=== PATIENT | female | born 1995 | race Caucasian/White ===

== ENCOUNTER 2019-09-19 16:52 | Outpatient (CLI) | payer OTHER ==
--- NOTE | 2019-09-20 01:35 | XRAY Report ---
Reason: RT ANKLE PAIN Procedure Date: 09/19/2019 Accession Number: [id number] / [id number] Procedure: XR - Ankle 3 View RT CPT Code: Final Report FULL RESULT: EXAM: RIGHT ANKLE RADIOGRAPHY EXAM DATE: 09/19/2019 05:04 PM. CLINICAL HISTORY: RT ANKLE PAIN. COMPARISON: None. TECHNIQUE: 3 views. FINDINGS: Bones: No acute fractures or suspicious bone lesions. Joints: No subluxations. Ankle mortise is preserved. Soft Tissues: Lateral soft tissue swelling. IMPRESSION: No acute fracture or subluxation. RADIA
== END 2019-09-19 16:53 | disposition home or self-care (01) ==
LOC: DI 16:52
PROVIDERS: ATTEND Physician Assistant
DX: M25.572 Pain in left ankle and joints of left foot (principal)

== ENCOUNTER 2020-06-26 17:54 | Outpatient (CLI) | payer OTHER ==
--- NOTE | 2020-06-26 19:05 | Ultrasound Report ---
PROCEDURE: OB First Trimester INDICATIONS: POSITIVE TEST OUTSIDE/PRIOR DATING DATA: Last menstrual period (LMP): 04/26/2020. LMP-based estimated date of delivery (SULLY): 01/31/2021. First dating scan (date and location): 06/26/2020. Estimated date of delivery (SULLY) from first dating scan: 02/02/2021. TECHNIQUE: Real-time scanning was performed of the fetus and maternal pelvic organs, with image documentation. COMPARISON: None FINDINGS: Embryo: Single intrauterine gestational sac is seen with fetus and yolk sac seen. heart rate i s 171 bpm. [place]-rump length measures 1.9 cm. Estimated gestational age based on current study is 8 w eeks, 3 days. No perigestational hemorrhage is noted. Measurement variability in dating: +/- 4 weeks by LMP, +/- 7 days by mean sac diameter (use before 6 weeks gestation if crown-rump length not able to be measured), +/- 5 days by crown-rump length (6-12 weeks gestation). Maternal organs: Ovaries are within normal limits. Limited images through the kidneys demonstrate n o hydronephrosis. IMPRESSION: 1. Single live intrauterine gestation with fetus and yolk sac seen. heart rate is 171 bpm. [place]anyell mated gestational age based on current study is 8 weeks, 3 days. 2. Normal appearing bilateral ovaries. No evidence of para gestational hemorrhage. Reviewed by: Yusuf Aldrich MD on 06/26/2020 7:03 PM PDT Approved by: Yusuf Aldrich MD on 06/26/2020 7:03 PM PDT Station ID: [id number]
== END 2020-06-26 17:55 | disposition home or self-care (01) ==
LOC: DI 17:54
PROVIDERS: ATTEND Advanced Practice Midwife
DX: Z32.01 Encounter for pregnancy test, result positive (principal)
CPT/HCPCS: 76801

== ENCOUNTER 2020-08-10 08:08 | Outpatient (CLI) | payer OTHER ==
[2020-08-10 09:02] LABS: BASOPHILS % (AUTO) 0.4 %; EOSINOPHILS % (AUTO) 0.7 %; LYMPHOCYTES # (AUTO) 1.3 10^3/uL (1.5-3.5); LYMPHOCYTES % (AUTO) 23.5 %; MEAN CORPUSCULAR HEMOGLOBIN 32.5 pg (27.0-31.0); MEAN CORPUSCULAR HGB CONC 34.4 g/dL (32.0-36.0); MEAN CORPUSCULAR VOLUME 94.6 fL (81.0-99.0); MEAN PLATELET VOLUME 11.4 fL (7.9-10.8); MONOCYTES # (AUTO) 0.3 10^3/uL (0.0-1.0); MONOCYTES % (AUTO) 5.6 %; NEUTROPHILS # (AUTO) 3.9 10^3/uL (1.5-6.6); NEUTROPHILS % (AUTO) 69.4 %; PLT - PLATELET COUNT 171 10^3/uL (130-450); RED BLOOD COUNT 3.69 10^6/uL (4.20-5.40); RED CELL DISTRIBUTION WIDTH 12.8 % (12.0-15.0); WHITE BLOOD COUNT 5.6 x10^3/uL (4.8-10.8)
[2020-08-10 09:08] LABS: BILIRUBIN,URINE NEGATIVE (NEGATIVE); GLUCOSE, URINE (UA) NEGATIVE (NEGATIVE); KETONES,URINE (UA) NEGATIVE (NEGATIVE); LEUKOCYTE ESTERASE, URINE NEGATIVE (NEGATIVE); NITRITE,URINE NEGATIVE (NEGATIVE); OCCULT BLOOD,URINE NEGATIVE (NEGATIVE); PROTEIN,URINE NEGATIVE (NEGATIVE); UROBILINOGEN,URINE 0.2 (NORMAL) E.U./dL (NORMAL)
[2020-08-10 09:09] LABS: CLARITY,URINE CLOUDY (CLEAR)
[2020-08-10 09:20] LABS: AMORPHOUS SEDIMENT,UR Marked /LPF; BACTERIA,URINE Many /HPF (None Seen); RBC,URINE None Seen /HPF (0-5); SQUAMOUS EPITHELIAL CELL,UR MANY Squamous (<= Few)
[2020-08-12 15:46] LABS: HIV AG/AB 4TH GEN NON-REACTIVE (NON-REACTIVE)
[2020-08-12 19:30] LABS: HEPATITIS B SURFACE ANTIGEN NON-REACTIVE (NON-REACTIVE)
[2020-08-12 19:46] LABS: HEPATITIS C ANTIBODY NON-REACTIVE (NON-REACTIVE)
== END 2020-08-10 08:09 | disposition home or self-care (01) ==
LOC: LAB 08:08
PROVIDERS: ATTEND Advanced Practice Midwife
DX: Z34.90 Encounter for supervision of normal pregnancy, unspecified, unspecified trimester (principal); Z36.89 Encounter for other specified antenatal screening; Z36.0 Encounter for antenatal screening for chromosomal anomalies
CPT/HCPCS: 36415; 81001; 81220; 81243; 81329; 81511; 81599; 85025; 86762; 86803; 86850; 86900; 86901; 87086; 87340; 87389

== ENCOUNTER 2020-08-21 07:00 | Outpatient (CLI) | payer OTHER ==
[2020-08-21 20:36] LABS: TRICHOMONAS VAGINALIS DNA NEGATIVE (NEGATIVE)
== END 2020-08-21 23:59 | disposition home or self-care (01) ==
LOC: LAB.R 07:00
PROVIDERS: ATTEND Nurse Practitioner Obstetrics & Gynecology
DX: Z11.3 Encounter for screening for infections with a predominantly sexual mode of transmission (principal)
CPT/HCPCS: 87491; 87591; 87661

== ENCOUNTER 2020-09-19 08:47 | Outpatient (CLI) | payer OTHER ==
--- NOTE | 2020-09-19 17:24 | Ultrasound Report ---
PROCEDURE: OB Detailed Eval INDICATIONS: SCREENING OUTSIDE/PRIOR DATING DATA: Last menstrual period (LMP): 04/26/2020. LMP-based estimated date of delivery (SULLY): 01/31/2021. First dating scan (date and location): 06/26/2020. Estimated date of delivery (SULLY) from first dating scan: 02/02/2021. TECHNIQUE: Real-time scanning was performed of the fetus, with image documentation and biometric measurements. Endovaginal scanning: Not needed COMPARISON: 06/26/2020 OB ultrasound FINDINGS: General: A single living intrauterine gestation is present. Presentation: Vertex Placenta: Placental position is posterior, without previa. Amniotic fluid index: 13.8 cm, 44th percentile for gestational age. heart rate: 145 beats per minute. Maternal cervical canal: 4.3 cm long; normal length is 2.5 cm or more. biometrics: Biparietal diameter: 4.9 cm, 20 weeks 5 days Head circumference: 18.3 cm, 20 weeks 5 days Abdominal circumference: 15.7 cm, 20 weeks 6 days Femur length: 3.3 cm, 20 weeks 2 days Estimated gestational age from initial scan: 20 weeks 4 days. Composite gestational age from present scan: 20 weeks 4 days Estimated weight and percentile: 366 g, 48th percentile Measurement variability in biometric dating: +/- 10 days from 12-20 weeks gestation, +/- 2 weeks from 20-30 weeks gestation, +/- 3 weeks at 30 weeks gestation or later. Anatomic survey: Neuro: Ventricles are normal at less than 10 mm. Cisterna magna is normal at 3-11 mm. Cerebellum i s normal in size and morphology. Nuchal skin fold: Normal at less than 6 mm between 14 and 20 weeks gestational age. Face: Nose and lips, facial profile are normal. Spine: No evidence for spina bifida. Heart: 4-chambered heart is present, with normal ventricular outflow tracts. Diaphragm: Diaphragm is intact. Stomach: Left-sided stomach is present. Kidneys: No hydronephrosis. Normal is less than 5 mm in 2nd trimester, less than 7 mm in 3rd trimester. Cord: 3 vessel cord has orthotopic insertion. Bladder: Normal in size. Extremities: All 4 extremities are visualized. IMPRESSION: Appropriate interval growth, normal survey of anatomy, the delivery date is projected to be maggie dunn on 02/02/2021. Reviewed by: Leno Sarmiento MD on 09/19/2020 5:22 PM PST Approved by: Leno Sarmiento MD on 09/19/2020 5:22 PM PST Station ID: [id number]
== END 2020-09-19 08:48 | disposition home or self-care (01) ==
LOC: DI 08:47
PROVIDERS: ATTEND Nurse Practitioner Obstetrics & Gynecology
DX: Z36.89 Encounter for other specified antenatal screening (principal)
CPT/HCPCS: 76811

== ENCOUNTER 2020-12-24 07:20 | Outpatient (CLI) | payer OTHER ==
[2020-12-24 08:35] LABS: MEAN CORPUSCULAR HEMOGLOBIN 31.4 pg (27.0-31.0); MEAN CORPUSCULAR HGB CONC 32.6 g/dL (32.0-36.0); MEAN CORPUSCULAR VOLUME 96.3 fL (81.0-99.0); MEAN PLATELET VOLUME 11.3 fL (7.9-10.8); RED BLOOD COUNT 3.82 10^6/uL (4.20-5.40); RED CELL DISTRIBUTION WIDTH 12.7 % (12.0-15.0); WHITE BLOOD COUNT 8.7 x10^3/uL (4.8-10.8)
== END 2020-12-24 07:21 | disposition home or self-care (01) ==
LOC: LAB 07:20
PROVIDERS: ATTEND Advanced Practice Midwife
DX: Z34.90 Encounter for supervision of normal pregnancy, unspecified, unspecified trimester (principal); Z36.89 Encounter for other specified antenatal screening
CPT/HCPCS: 36415; 82950; 85027

== ENCOUNTER 2021-01-07 08:00 | Outpatient (CLI) | payer OTHER | END 2021-01-07 23:59 | disposition home or self-care (01) | LOC: LAB 08:00 | PROVIDERS: ATTEND Nurse Practitioner Obstetrics & Gynecology | DX: Z36.85 Encounter for antenatal screening for Streptococcus B (principal) | CPT/HCPCS: 87797 ==

== ENCOUNTER 2021-01-29 16:12 | Outpatient (CLI) | payer OTHER ==
--- NOTE | 2021-01-30 09:37 | Ultrasound Report ---
PROCEDURE: OB F/U or Repeat INDICATIONS: UTERINE SIZE-DATE DISCREPANCY OUTSIDE/PRIOR DATING DATA: Last menstrual period (LMP): 05/06/2020 LMP-based estimated date of delivery (SULLY): 01/31/2021. First dating scan (date and location): 06/26/2020. Estimated date of delivery (SULLY) from first dating scan: 02/02/2021. However, provider states that SULLY is 01/31/2021. TECHNIQUE: Real-time scanning was performed of the fetus, with image documentation and biometric measurements. COMPARISON: 09/19/2020 FINDINGS: General: A single living intrauterine gestation is present. Presentation: Cephalic Placenta: Placental position is posterior, without previa. Amniotic fluid index: 13.4 cm, greater than 50% for gestational age. heart rate: 149 beats per minute. Maternal cervical canal: Not well seen secondary to late stage of biometrics: Biparietal diameter: 9.3 cm, 37 weeks 6 days Head circumference: 34.25 cm, 39 weeks 4 days Abdominal circumference: 35.2 cm, 39 weeks 1 day Femur length: 6.3 cm, 32 weeks 5 days Estimated gestational age from initial scan: not applicable. Composite gestational age from present scan: 37 weeks 2 days Estimated weight and percentile: 3254 g, 24.4 percentile Measurement variability in biometric dating: +/- 10 days from 12-20 weeks gestation, +/- 2 weeks from 20-30 weeks gestation, +/- 3 weeks at 30 weeks gestation or more. Other: Not applicable. IMPRESSION: 1. Living late third trimester intrauterine . No evidence of complications. 2. Today's ultrasound age is 37 weeks 2 days. Clinical age (slightly adjusted by referring provider) is 39 weeks 5 days. Reviewed by: Herman Alcocer MD on 01/30/2021 9:35 AM PDT Approved by: Herman Alcocer MD on 01/30/2021 9:35 AM PDT Station ID: [id number]
== END 2021-01-29 16:13 | disposition home or self-care (01) ==
LOC: DI 16:12
PROVIDERS: ATTEND Nurse Practitioner Obstetrics & Gynecology
DX: O26.843 Uterine size-date discrepancy, third trimester (principal); Z3A.37 37 weeks gestation of pregnancy

== ENCOUNTER 2021-02-02 23:59 | Inpatient (IN) | payer OTHER ==
[2021-02-03] MEDS ORDERED: LIDOCAINE-MPF 1% 30 ML VIAL ID PRN (00:36)
[2021-02-03] MEDS ORDERED: SODIUM CHLORIDE FLUSH 0.9% 10 ML SYRINGE IVP PRN (00:36)
[2021-02-03] MEDS ORDERED: OXYTOCIN 10 UNIT/ML VIAL IM PRN (00:36)
[2021-02-03] MEDS ORDERED: OXYTOCIN/SODIUM CHLORIDE 500 ML IV PRN (00:36)
[2021-02-03] MEDS ORDERED: TRANEXAMIC ACID IN NACL 1,000 MG/100 ML BAG IV PRN (00:36)
[2021-02-03] MEDS ORDERED: AMPICILLIN 2 GM in SODIUM CHLORIDE 0.9% MINIBAG 100 ML IV ONE (00:36)
[2021-02-03] MEDS ORDERED: miSOPROStoL 200 MCG TABLET BC PRN (00:36)
[2021-02-03] MEDS ORDERED: CARBOPROST TROMETHAMINE 250 MCG/ML AMP IM PRN (00:36)
[2021-02-03] MEDS ORDERED: METHYLERGONOVINE 0.2 MG/ML VIAL IM PRN (00:36)
[2021-02-03] MEDS ORDERED: SODIUM CHLORIDE FLUSH 0.9% 10 ML SYRINGE IVP SCH (01:00)
--- NOTE | 2021-02-03 01:05 | HISTORY & PHYSICAL EXAMINATION ---
Admit History - Visit Reason Visit Reason: Contractions - : 1 Parity: 0 Premature: 0 Ectopic: 0 : 0 Care: positive: [facility] Risk/History: positive: None Complications This : positive: None Smoking Status: Never smoker - Mother's Labs Mother's Blood Type: positive: O Mother's RH: positive: Positive GBS: positive: Group B Strep Positive Rubella Status: positive: Immune Meds/Allgy - Allergies Allergies/Adverse Reactions: Allergies Allergy/AdvReac Type Severity Reaction Status Date / Time No Known Drug Allergies Allergy Verified 02/03/21 00:53 Review of Systems - Constitutional Constitutional: denies: Fever, Chills, Malaise - Eyes Eyes: denies: Blurred vision, Spots in vision, Dipolpia - Cardiovascular Cariovascular: denies: Irregular heart rate, Palpitations, Chest pain, Edema - Respiratory Respiratory: denies: Cough, SOB at rest - Gastrointestinal Gastrointestinal: denies: Constipation, Diarrhea, Change in bowel habits - Integumentary Integumentary: denies: Rash, Pruritis - Neurological Neurological: denies: Headache Physical - Abdominal Exam Contraction Frequency (min/apart): 3-5 Contraction Intensity: positive: Moderate Uterine Resting Tone: positive: Soft - Monitoring Heart Rate Baseline: 130 Strip Review: positive: Category I - Presentation Presentation: positive: Vertex - Vaginal Exam Membranes: positive: Membranes intact Dilation (in cm): 5 Effacement (%): 90 Station: positive: 0 Cervical Position: positive: Midposition - Speculum Exam Speculum Exam Performed: positive: No Plan for Labor - Plan For Labor I expect patient to be DC'd or transferred within 96 hours.: Yes Plan for Labor: HPI: Kanika is a 25yo @ 40.3wks gestation by LMP c/w 8.5wk U/S who presented to [facility] with c/o contractions. She states her contractions have steadily increased in frequency and duration for the past 24 hours with a notable increased intensity at approximately 12:30 yesterday afternoon. She denies vaginal bleeding or leakage of fluid. She reports +FM. Upon arrival SVE 5/0 and vertex. Membranes intact. She has been a patient of [facility] for the duration of her which has remained uncomplicated. She is noted to be GBS positive and will receive intrapartum antibiotic prophylaxis per protocol. She is hoping to have an unmedicated delivery. She will be admitted to [facility] for expectant management. Dating criteria: LMP: 04/26/2020 Initial U/S @ 8.5wks c/w LMP dating Serial exams - agree OB Hx: G1: Current Medications: PNV Allergies: NKDA PMHx: anemia - not present Surgical Hx: [place] tooth extraction 2011 Social Hx: Never smoker. No ETOH or IVDA. Javier. Family Hx: Breast cancer - mom; ovarian cancer - MGM; Alcoholism - MGM, MGF, Uncle; Diabetes - aunt course: Initial US: at 8.5wks c/w LMP for SULLY of 01/31/2021: O pos/Rubella immune Gentic testing: Quad neg; SMA neg; Fragile X neg; CF neg FAS WNL. Posterior placenta, no previa. 3VC. CATHRYN WNL. Size c/w dating. Glucola- 99 TDAP - declines Influenza: 08/21/2020 GBS at 36.4 weeks - POS IPAP in labor HSV: denies self and partner Breast pump Rx : 12/16/2020 MOD: . Javier (both big babies) Boy! Undecided on name; Desires "wait and see" approach to pain management however hoping to avoid epidural pp contraception: [place] PAP: 08/2018-neg per pt; would like at 6wk PP Physical Exam: Normocephalic, atraumatic Heart RRR w/o M/G/R Lungs CTAB Abdomen gravid, soft, nontender FHR baseline 130, moderate variability, + accels, no decels Contractions palpate moderate every 3-5 minutes with soft resting tone SVE 5/90/0. Membranes intact Bilateral LE's trace edema Mood is good Assessment: 25yo @ 40.3wks gestation by LMP c/w 8.5 wk U/S Early labor GBS positive FHR Category I Plan: Admit to [facility] for expectant management. Initiate IPAP for GBS prophylaxis per protocol which patient declines initially secondary to "do not want baby to be exposed for a prolonged period of time". Discussed implication of inadequate treatment including GBS infected infant leading to serious complications which could be fatal. Intermittent monitoring. Encouraged ambulation and position changes. Jacuzzi PRN. Nitrous oxide PRN. Epidural per maternal request. Anticipate . Pt verbalized understanding and agrees to above plan. She denies further questions or concerns at this time.
[2021-02-03 01:07] LABS: BASOPHILS % (AUTO) 0.3 %; EOSINOPHILS % (AUTO) 0.1 %; HCT - HEMATOCRIT 36.3 % (37.0-47.0); HGB - HEMOGLOBIN 12.5 g/dL (12.0-16.0); LYMPHOCYTES # (AUTO) 1.5 10^3/uL (1.5-3.5); LYMPHOCYTES % (AUTO) 10.8 %; MEAN CORPUSCULAR HEMOGLOBIN 32.1 pg (27.0-31.0); MEAN CORPUSCULAR HGB CONC 34.4 g/dL (32.0-36.0); MEAN CORPUSCULAR VOLUME 93.3 fL (81.0-99.0); MEAN PLATELET VOLUME 11.5 fL (7.9-10.8); MONOCYTES # (AUTO) 0.7 10^3/uL (0.0-1.0); MONOCYTES % (AUTO) 4.7 %; NEUTROPHILS # (AUTO) 11.6 10^3/uL (1.5-6.6); NEUTROPHILS % (AUTO) 83.2 %; PLT - PLATELET COUNT 141 10^3/uL (130-450); RED BLOOD COUNT 3.89 10^6/uL (4.20-5.40); RED CELL DISTRIBUTION WIDTH 12.5 % (12.0-15.0); WHITE BLOOD COUNT 13.9 x10^3/uL (4.8-10.8)
[2021-02-03] MEDS: LACTATED RINGERS 1,000 ML IV SCH ×2 (02:19→09:15)
--- NOTE | 2021-02-03 05:37 | PROVIDER PROGRESS NOTE ---
Labor Progress Note - Uterine Monitoring Uterine Monitoring Mode: positive: External toco Contraction Frequency (min/apart): 3-6 Contraction Intensity: positive: Strong Uterine Resting Tone: positive: Soft - Monitoring Monitor Mode: positive: External ultrasound Heart Rate Baseline: 140 Heart Rate Variability: positive: Moderate (6-25 bmp) Accelerations: positive: Present, 15x15 Decelerations: positive: None Strip Review: positive: Category I - Vaginal Exam Dilation (in cm): 8 Effacement (%): 90 Station: 0 - Labor Progress Note Labor Progress Note/Additional Text: S: Breathing through contractions. She is coping well and her partner is supportive at the bedside initiating hip squeezes per pt direction. She reports intermittent pressure with some contractions. Feeling tired after being awake all night but continues to cope well. Feels her water may have broken in the tub approximately 2 hours ago. Continues to leak small amount of clear fluid. O: FHR baseline 140, moderate variability, + accels, no decels Contractions palpate strong in somewhat irregular pattern every 3-6 minutes with soft resting tone SVE 8/90/0 SROM x 2 hours - clear fluid A: 25yo @ 40.3wks gestation by LMP c/w 8.5wk U/S Active labor GBS positive - s/p 2g Ampicillin x 1 FHR Category I P: Continue expectant management Encouraged position changes Nitrous oxide PRN Anticipate .
[2021-02-03] MEDS: AMPICILLIN 1 GM in SODIUM CHLORIDE 0.9% MINIBAG 100 ML IV SCH ×3 (06:02→14:02)
[2021-02-03] MEDS ORDERED: ROPIVACAINE 0.2% 200 MG/100 ML BAG EP ONE (08:42)
[2021-02-03] MEDS ORDERED: fentaNYL 100 MCG/2 ML VIAL ONE (08:46)
[2021-02-03] MEDS ORDERED: diphenhydrAMINE INJ 50 MG/ML VIAL IVP ONE (08:51)
[2021-02-03] MEDS ORDERED: ONDANSETRON 4 MG/2 ML VIAL IVP PRN (09:03)
[2021-02-03] MEDS ORDERED: ePHEDrine 50 MG/ML VIAL IVP PRN (09:03)
[2021-02-03] MEDS ORDERED: NALOXONE 0.4 MG/ML VIAL IVP PRN (09:03)
[2021-02-03] MEDS ORDERED: NALBUPHINE 10 MG/ML AMP IVP PRN (09:03)
[2021-02-03] MEDS ORDERED: ROPIVACAINE 0.2% 200 MG/100 ML BAG EP PRN (09:03)
--- NOTE | 2021-02-03 09:03 | ANESTHESIA ---
Pre-Anesthesia VS, & Labs - Diagnosis active labor - Procedure vaginal delivery Vital Signs: Temp Pulse Resp BP Pulse Ox 36.9 C 102 H 20 108/75 98 02/03/21 07:38 02/03/21 01:30 02/03/21 01:30 02/03/21 01:30 02/03/21 00:38 Height: 5 ft 9 in Weight (kg): 74.389 kg Body Mass Index: 24.2 BMI Classification: Healthy weight - NPO Other (clear liquids) - Is Patient ?: Yes - Lab Results Current Lab Results: Laboratory Tests 02/03/21 00:51: Blood Type O POSITIVE, Antibody Screen NEGATIVE 02/03/21 00:51: WBC 13.9 H, RBC 3.89 L, Hgb 12.5, Hct 36.3 L, MCV 93.3, MCH 32.1 H, MCHC 34.4, RDW 12.5, Plt Count 141, MPV 11.5 H, Neut # (Auto) 11.6 H, Lymph # (Auto) 1.5, Holmes # (Auto) 0.7, Eos # (Auto) 0.0, Baso # (Auto) 0.0, Absolute Nucleated RBC 0.00, Nucleated RBC % 0.0 Fish Bones: 02/03/21 00:51 Home Medications and Allergies Active Medications Carboprost Tromethamine (Carboprost Tromethamine 250 Mcg/Ml Amp) 250 mcg IM Q15M PRN PRN Reason: Step 4: Hemorrhage protocol Stop: 02/08/21 00:37 Oxytocin/Sodium Chloride (Pitocin/Sodium Chloride) 500 mls @ 999 mls/hr IV PRN PRN; Protocol PRN Reason: POST- HEMORR PREVENTION Stop: 02/08/21 00:37 Tranexamic Acid (Tranexamic 1,000 Mg/100ml-Nacl) 1,000 mg in 100 mls @ 600 mls/hr IV .ONCE PRN PRN Reason: EBL >1200mL and within 3hr Stop: 02/08/21 00:37 Ampicillin Sodium 1 gm/ Sodium (Chloride) 100 mls @ 200 mls/hr IV Q4H ELAINA Last Admin: 02/03/21 06:02 Dose: 200 mls/hr Documented by: Lactated Ringer's (Lr) 1,000 mls @ 150 mls/hr IV .[id number] [facility] Last Admin: 02/03/21 02:19 Dose: 150 mls/hr Documented by: Lidocaine HCl (Lidocaine-Mpf 1% 30 Ml Vial) 30 ml ID .ONCE PRN PRN Reason: PERINEAL REPAIR Stop: 02/08/21 00:37 Methylergonovine Maleate (Methylergonovine 0.2 Mg/Ml Vial) 0.2 mg IM .ONCE PRN PRN Reason: Step 2: Hemorrhage protocol Stop: 02/08/21 00:37 Misoprostol (Misoprostol 200 Mcg Tablet) 800 mcg BC .ONCE PRN PRN Reason: Step 3: Hemorrhage protocol Stop: 02/08/21 00:37 Oxytocin (Oxytocin 10 Unit/Ml Vial) 10 unit IM .ONCE PRN PRN Reason: Step one: If no IV access Stop: 02/08/21 00:37 Sodium Chloride (Sodium Chloride Flush 0.9% 10 Ml Syringe) 10 ml IVP PRN PRN PRN Reason: NEEDED PER PROVIDER ORDERS Sodium Chloride (Sodium Chloride Flush 0.9% 10 Ml Syringe) 10 ml IVP 0100,0900,1700 [facility] PNVs Allergies/Adverse Reactions: Allergies Allergy/AdvReac Type Severity Reaction Status Date / Time No Known Drug Allergies Allergy Verified 02/03/21 00:53 Anes History & Medical History - Anesthetic History Family history of Anesthesia Complications: Denies Family history of Malignant Hyperthermia: Denies - Medical History Cardiovascular: reports: None Pulmonary: reports: None Gastrointestinal: reports: None Urinary: reports: None Neuro: reports: None Musculoskeletal: reports: None Endocrine/Autoimmune: reports: None Blood Disorders: reports: None Skin: reports: None Smoking Status: Never smoker Psychosocial: reports: No issues indicated History of Cancer?: No - Obstetrical History : 1 Parity: 0 Events: positive: None Complications: positive: None Exam General: Alert, Oriented x3, Cooperative, No acute distress Dental: WNL Plan Anesthesia Type: Epidural (CSE) Consent for Procedure(s) Verified and Reviewed: Yes Code Status: Attempt Resuscitation ASA classification: 2-Mild systemic disease Is this case an emergency?: No
--- NOTE | 2021-02-03 09:20 | PROVIDER PROGRESS NOTE ---
Labor Progress Note - Uterine Monitoring Uterine Monitoring Mode: positive: External toco Contraction Frequency (min/apart): 2-4 Contraction Intensity: positive: Moderate Uterine Resting Tone: positive: Soft - Monitoring Monitor Mode: positive: External ultrasound Heart Rate Baseline: 125 Heart Rate Variability: positive: Moderate (6-25 bmp) Accelerations: positive: Present, 15x15 Decelerations: positive: Variable, Intermittent (<50% x20 min) Strip Review: positive: Category I (Overall Cat I, with an occassional variable during the setup of the epidural), Category II - Vaginal Exam Dilation (in cm): 6 Effacement (%): 80 Station: -1 Cervical Position: Anterior - Labor Progress Note Labor Progress Note/Additional Text: S: Nan was coping well with NOx gas, then began to feel overwhelmed and requested an epidural after SVE revealing more dilatation required before pushing. Epidural placed and Nan is now sleeping. Juan Alberto, her , is very supportive at bedside. O: SVE previously reported as 9/90% SVE now 6/80(edematous)/-1 GBS positive- amp given x2; next dose 1000 A: 25yo at 40.3wks in active labor Edematous cervix epidural effective FHT reassuring P: IV benadryl given at 0900 Epidural for pain management Continuous monitoring Anticipate
[2021-02-03] MEDS ORDERED: WITCH HAZEL/GLYCERIN 1 PAD TOP PRN (16:06)
[2021-02-03] MEDS ORDERED: HYDROCORTISONE 1% CREAM 28 GM TUBE PR PRN (16:06)
--- NOTE | 2021-02-03 16:17 | DELIVERY NOTE ---
Delivery Note - Labor Labor: positive: Spontaneous - Delivery Method Delivery Method: positive: Spontaneous vaginal delivery - Presentation Presentation: positive: Vertex, ANGIE - left occiput anterior - Nuchal Cord Nuchal Cord: positive: Present (loose x1; reduced) - Anesthetic Anesthetic Type: - Amniotic Fluid Description Amniotic Fluid Description: positive: Clear - Laceration Laceration: positive: 1st degree, Labial, Perineal - Suture Suture Type: positive: Vicryl Suture Size: positive: 3-0, 4-0 - Delivery Outcome Delivery Outcome: positive: Livebirth - [place] Providence: positive: Placed in direct skin contact with mother, Stimulated, [place] used sex: positive: Male : 9 : 9 - Cord Cord: positive: 3 vessels - Placenta Placenta: positive: Intact, Spontaneous - Estimated Blood Loss Estimated Blood Loss (in cc): 150 - Post Delivery Events Post Delivery Events: positive: No post delivery events - Delivery Comments (Free Text/Narrative) Delivery Comments (Free Text/Narrative): Note: Labor: This 25 year old, , @40.3wks gestation by 8.5week Ultrasound, confirmed by LMP, presented around 0100 in early active labor. Cervix was 5/90/0 and vertex by digital exam. FHR pattern demonstrated 130 baseline in a Category I pattern. SROM occurred at approx. 0330 in the whirlpool tub and amount and color of fluid were noted to be moderate and clear. Some cervical dilatation was slow to progress, but otherwise normal labor course. Epidural placed upon maternal request. She progressed to complete at 1318 and began pushing at 1325. : Normal of a 3665gm male on 02/03/2021 0523. Nuchal loose x1 and easily reduced. The was placed on maternal abdomen, stimulated, dried and placed skin to skin. Apgars 9 at one minute and 9 at five minutes. The umbilical cord was allowed to stop pulsating at which time it was doubly clamped and cut by CNM per maternal request. Pitocin administered via IV for hemostasis. Fundal massage and gentle cord traction applied for active third stage management. Cord blood was obtained. Placenta delivered spontaneously and intact at 1530. Three vessel cord. EBL 150mL. Fourth Stage: Uterine fundus firm and without excessive bleeding. The perineum, vagina, and cervix were inspected. The perineum sustained a superficial laceration that was repaired with a 4-0 vicryl, and bilateral labia minora sustained lacerations which were repaired with 3-0 vicryl. All repairs were performed in standard fashion under sterile conditions. Vaginal examination following repair was done. Tissues well approximated. initiated. Family bonding well. Both mother and baby are in stable condition.
[2021-02-03] MEDS: IBUPROFEN 600 MG TABLET PO SCH ×2 (17:11→22:55)
[2021-02-03] MEDS: DOCUSATE SODIUM 100 MG CAPSULE PO PRN (17:11)
[2021-02-03] MEDS: ACETAMINOPHEN 500 MG TABLET PO SCH (17:12)
[2021-02-04] MEDS: ACETAMINOPHEN 500 MG TABLET PO SCH ×2 (02:15→03:55)
[2021-02-04] MEDS: IBUPROFEN 600 MG TABLET PO SCH ×2 (06:12→10:35)
--- NOTE | 2021-02-04 09:08 | PROVIDER PROGRESS NOTE ---
Subjective - Prog Note Date Prog Note Date: 02/04/21 Prog Note Time: 09:02 - Subjective Pt reports feeling: Improved Subjective: S: Nan is sitting up in bed, baby. FOB is resting on the couch. She reports as going very well. She says her bleeding is like a heavy period, but is not soaking a pad every hour. Cramping is minimal. She desires to go home today, if possible, due to having family visiting to support her at home. O: Lochia rubra Fundus firm RPR w/reflex drawn and sent out today A: 25yo s/p on pp day 1 Normal recovery P: Continue routine care Evaluate for discharge home today or tomorrow, per peds Objective - Vital Signs/Intake & Output Vital Signs: Vital Signs x48h Temp Pulse Resp BP Pulse Ox 02/04/21 08:12 36.6 C 78 16 115/69 100 02/04/21 04:00 36.3 C L 99 22 108/71 96 Intake & Output: Intake & Output 02/01/21 02/02/21 02/03/21 02/04/21 23:59 23:59 23:59 23:59 Intake Total 2800 Output Total 1300 Balance 1500 - Lab Results Fish Bones: 02/03/21 00:51 Other Labs: Lab Results x24hrs 02/03/21 Range/Units 03:05 Coronavirus (PCR) NEGATIVE
[2021-02-04] MEDS: DOCUSATE SODIUM 100 MG CAPSULE PO PRN (10:35)
[2021-02-04 15:52] VITALS: BP 123/76
--- NOTE | 2021-02-04 16:38 | DISCHARGE SUMMARY ---
Discharge Summary Admit Date: 02/03/21 Discharge Date: 02/04/21 Condition at Discharge: Good - HPI History of Present Illness: Admit Date 02/03/2021 Discharge Date 02/04/2021 Diagnosis on Admission: 1. A 25yo at 40.3 week intrauterine 2. Early Active Labor 3. GBS positive Diagnosis on Discharge 1. A 25yo s/p spontaneous vaginal delivery on 02/03/2021 2. Normal recovery 3. Adequate GBS coverage Brief History: She is a patient at [facility] who presented on 02/03/2021 with complaints of contractions. The patient was found to contract every 3 to 5 minutes and her cervix was 5cm dilated, 90%effaced, and 0 station. She as augmented with pitocin and spontaneously delivered a viable male named Analy sarkar. Apgars were 9 and 9 - and 1 and 5 minutes respectively. EBL 150 mL. The patient has a superficial 1st degree laceration that was repaired with 4-0 vicryl, and bilateral labial lacerations that were repaired with 3-0 vicryl, all lacerations were repaired in usual fashion under sterile conditions. She has been doing well in her course. She is ambulating and tolerating a regular diet. She is urinating without difficulty and her lochia is normal. Her pain is well controlled with oral medications. She will be discharged home today on day #1 without need for prescriptions. She intends to follow up with Midwifery at [facility] in 1, and 6 weeks for routine visit. She has been given precautions to call if she has any worsening fevers, chills, abdominal pain, increased bleeding or foul smelling vaginal lochia. - ALLERGIES Allergies/Adverse Reactions: Allergies Allergy/AdvReac Type Severity Reaction Status Date / Time No Known Drug Allergies Allergy Verified 02/03/21 00:53 - LABS Result Diagrams: 02/03/21 00:51
--- NOTE | 2021-02-04 16:45 | Discharge Plan ---
Discharge Plan Problem Reviewed?: Yes Disposition: Home, Self Care Condition: Good Diet: Regular Additional Instructions or Follow Up instructions: Follow up with midwifery in one and six weeks No Smoking: If you smoke, Please STOP! Call for help. Follow-up with: Mary Long ARNP [Provider Admit Priv/Credential] -
--- NOTE | 2021-02-04 19:22 | Labor Flowsheet ---
Labor Flowsheet Datetime Report Generated by CPN: 02/04/2021 19:22 Datetime: 02/04/2021 15:48 VITAL SIGNS NBP Sys/Marlin/Mean (mmHg): 123 : 76 : 85 Pulse: 94 LaborFlag: Labor Datetime: 02/04/2021 03:59 SpO2 (%): 96 Datetime: 02/03/2021 14:24 UTERINE ACTIVITY Monitor Mode: External Frequency (min): 3 Quality: Strong Duration (sec): 90-120 Pattern: Normal: <= 5 Contractions in 10 Minutes Resting Tone (Palpate): Relaxed Contraction Comments: pushing well ASSESSMENT A Monitor Mode: External US FHR Baseline Rate : 140 Variability: Moderate 6-25 bpm Accelerations: 15X15 Decelerations: Variable Category: Category II Datetime: 02/03/2021 13:25 STAGE 2 Pushing: Coached on Pushing; No Urge to Push Pushing Position: Pushing Lithotomy Pushing Progress: Descent with Pushing Datetime: 02/03/2021 13:18 VAGINAL EXAM Dilatation (cm): 10.0 Effacement (%): 100 Exam by: Jacquelin Long CNJeff Vaginal Bleeding: Normal Show Cervix, Consistency: Soft Cervix, Position: Anterior Datetime: 02/03/2021 13:07 Respirations: 16 Datetime: 02/03/2021 12:56 PATIENT CARE Patient Position/Activity: Left Tilt; Semi-Fowlers Datetime: 02/03/2021 12:55 Temperature (C): 37.0 Datetime: 02/03/2021 12:14 Comments: deceleration to 90's when pt repositioned to throne. Datetime: 02/03/2021 12:01 Patient Care Comments: throne Datetime: 02/03/2021 10:58 Station: 0 Datetime: 02/03/2021 10:17 I/O Interventions: Jewell Cath Inserted Datetime: 02/03/2021 09:24 Temperature Route: Oral PAIN Pain Scale: 1 Pain Presence: Intermittent Pain Type: Dull Pain Location: Abdomen Pain Relief Measures: Epidural Given Pain Coping: Sleeping Anesthesia Level Check: T10- Umbilicus Datetime: 02/03/2021 09:00 Actions for Decelerations: IV Bolus Datetime: 02/03/2021 08:42 ANESTHESIA Epidural Procedure: Test Dose Datetime: 02/03/2021 08:23 Anesthesia Comments: A. Mary contacted via phone Datetime: 02/03/2021 08:18 Pain Assessment Comments: requesting epidural Datetime: 02/03/2021 08:00 COMMUNICATION Communication: Provider at Bedside Communication Comments: H. Ethan CNM assuming care Datetime: 02/03/2021 07:16 Stage of : Labor Datetime: 02/03/2021 06:56 Membranes Ruptured Date/Time: 02/03/2021 06:56 Membranes Rupture Method: Artificial Amniotic Fluid Color: Clear Datetime: 02/03/2021 04:28 Membrane Status: Intact
== END 2021-02-04 18:44 | disposition home or self-care (01) | DRG 807 ==
LOC: WFO 23:59 → FBP 02-03 00:04 → WFO 02-03 00:35 → FBP 02-03 00:36
PROVIDERS: ADMIT Nurse Practitioner Obstetrics & Gynecology; ATTEND Nurse Practitioner Obstetrics & Gynecology
PROC: 0HQ9XZZ Repair Perineum Skin, External Approach (ICD-10-PCS; principal; 2021-02-03)
PROC: 10E0XZZ Delivery of Products of Conception, External Approach (ICD-10-PCS; 2021-02-03)
DX: O70.0 First degree perineal laceration during delivery (principal); Z37.0 Single live birth; O69.81X0 Labor and delivery complicated by cord around neck, without compression, not applicable or unspecified; O99.824 Streptococcus B carrier state complicating childbirth; Z3A.40 40 weeks gestation of pregnancy
CPT/HCPCS: 36415; 85025; 86592; 86850; 86900; 86901; 87635; 99212; A9270; J1200; J7120

== ENCOUNTER 2022-04-03 15:49 | Outpatient (CLI) | payer OTHER ==
--- NOTE | 2022-04-03 18:43 | Ultrasound Report ---
PROCEDURE: OB First Trimester INDICATIONS: + PREG TEST OUTSIDE/PRIOR DATING DATA: Last menstrual period (LMP): 01/16/2022. LMP-based estimated date of delivery (SULLY): 10/23/2022. First dating scan (date and location): 04/03/2022. Estimated date of delivery (SULLY) from first dating scan: 10/29/2022. TECHNIQUE: Real-time scanning was performed of the fetus and maternal pelvic organs, with image documentation. COMPARISON: 01/29/2022 FINDINGS: Embryo: A single living intrauterine gestation is present with a heart rate of 169 bpm. Mean g estational sac diameter is 43 mm corresponding to a 9 week 6 day gestation. [place]-rump length is 33 m m corresponding to a 10 week 1 day gestation. There is a small subchorionic hemorrhage measuring 33 m m x 20 mm x 4 mm. Measurement variability in dating: +/- 4 weeks by LMP, +/- 7 days by mean sac diameter (use before 6 weeks gestation if crown-rump length not able to be measured), +/- 5 days by crown-rump length (6-12 weeks gestation). Maternal organs: Ovaries demonstrate a right-sided corpus luteal cyst. IMPRESSION: Early single living intrauterine gestation. Reviewed by: Laura Schneider MD on 04/03/2022 6:42 PM PDT Approved by: Laura Schneider MD on 04/03/2022 6:42 PM PDT Station ID: [id number]
== END 2022-04-03 15:50 | disposition home or self-care (01) ==
LOC: DI 15:49
PROVIDERS: ATTEND Obstetrics & Gynecology
DX: Z32.01 Encounter for pregnancy test, result positive (principal); Z36.89 Encounter for other specified antenatal screening
CPT/HCPCS: 36415; 81001; 85025; 86592; 86762; 86787; 86803; 86850; 86900; 86901; 87086; 87340; 87389

== ENCOUNTER 2022-04-03 15:53 | Outpatient (CLI) | payer OTHER ==
[2022-04-03 16:20] LABS: BASOPHILS % (AUTO) 0.5 %; EOSINOPHILS # (AUTO) 0.1 10^3/uL (0.0-0.7); EOSINOPHILS % (AUTO) 1.1 %; HCT - HEMATOCRIT 36.7 % (37.0-47.0); HGB - HEMOGLOBIN 12.4 g/dL (12.0-16.0); MEAN CORPUSCULAR HEMOGLOBIN 31.6 pg (27.0-31.0); MEAN CORPUSCULAR HGB CONC 33.8 g/dL (32.0-36.0); MEAN CORPUSCULAR VOLUME 93.4 fL (81.0-99.0); MEAN PLATELET VOLUME 11.5 fL (7.9-10.8); MONOCYTES # (AUTO) 0.4 10^3/uL (0.0-1.0); MONOCYTES % (AUTO) 5.4 %; NEUTROPHILS # (AUTO) 5.5 10^3/uL (1.5-6.6); NEUTROPHILS % (AUTO) 67.6 %; PLT - PLATELET COUNT 227 10^3/uL (130-450); RED BLOOD COUNT 3.93 10^6/uL (4.20-5.40); RED CELL DISTRIBUTION WIDTH 12.8 % (12.0-15.0); WHITE BLOOD COUNT 8.1 x10^3/uL (4.8-10.8)
[2022-04-03 16:56] LABS: BILIRUBIN,URINE NEGATIVE (NEGATIVE); GLUCOSE, URINE (UA) NEGATIVE (NEGATIVE); KETONES,URINE (UA) NEGATIVE (NEGATIVE); LEUKOCYTE ESTERASE, URINE NEGATIVE (NEGATIVE); NITRITE,URINE NEGATIVE (NEGATIVE); OCCULT BLOOD,URINE NEGATIVE (NEGATIVE); PROTEIN,URINE NEGATIVE (NEGATIVE); UROBILINOGEN,URINE 0.2 (NORMAL) E.U./dL (NORMAL)
[2022-04-03 17:04] LABS: AMORPHOUS SEDIMENT,UR Few /LPF; BACTERIA,URINE Rare /HPF (None Seen); CLARITY,URINE HAZY (CLEAR); RBC,URINE 0-5 /HPF (0-5); SQUAMOUS EPITHELIAL CELL,UR MANY Squamous (<= Few); WBC,URINE 0-3 /HPF (0-5)
[2022-04-04 05:12] LABS: HBsAG SCREEN Negative (Negative); HCV AB 0.4 s/co ratio (0.0-0.9); HIV SCREEN 4TH GENERATION Non Reactive (Non Reactive); RPR Non Reactive (Non Reactive)
[2022-04-04 08:09] LABS: VARICELLA-ZOSTER AB IGG <135 index (Immune >165)
== END 2022-04-03 15:54 | disposition home or self-care (01) ==
LOC: LAB 15:53
PROVIDERS: ATTEND Obstetrics & Gynecology
DX: Z36.89 Encounter for other specified antenatal screening (principal)
CPT/HCPCS: 36415; 81001; 85025; 86592; 86762; 86787; 86803; 86850; 86900; 86901; 87086; 87340; 87389

== ENCOUNTER 2022-04-17 08:00 | Outpatient (CLI) | payer OTHER ==
[2022-04-17 23:08] LABS: CHLAMYDIA TRACHOMATIS DNA NEGATIVE (NEGATIVE); NEISSERIA GONORRHOEAE DNA NEGATIVE (NEGATIVE); TRICHOMONAS VAGINALIS DNA NEGATIVE (NEGATIVE)
== END 2022-04-17 23:59 | disposition home or self-care (01) ==
LOC: LAB 08:00
PROVIDERS: ATTEND Obstetrics & Gynecology
DX: Z34.00 Encounter for supervision of normal first pregnancy, unspecified trimester (principal); Z36.89 Encounter for other specified antenatal screening
CPT/HCPCS: 87086; 87491; 87591; 87661

== ENCOUNTER 2022-09-01 15:17 | Outpatient (CLI) | payer OTHER ==
[2022-09-01 15:45] VITALS: BP 103/78
[2022-09-01 16:19] LABS: RUPTURE OF MEMBRANES PLUS NEGATIVE (NEGATIVE)
--- NOTE | 2022-09-01 16:33 | PROCEDURE REPORT ---
- HPI Diagnosis/Indication for NST: labor Current EDU 10/23/22 Gestation 32 Weeks and 4 Days 2 Para 1 Vital Signs Temperature 98.2 F 09/01/22 15:34 Heart Rate 86 09/01/22 15:34 Respiratory Rate 16 09/01/22 15:34 Blood Pressure 103/78 09/01/22 15:34 Temperature 98.2 F 09/01/22 15:34 Heart Rate 86 09/01/22 15:34 Respiratory Rate 16 09/01/22 15:34 Blood Pressure 103/78 09/01/22 15:34 O2 Saturation If not protocol: Oxygen Flow, liters/minute - NST Procedure NST Procedure Start Date 09/01/22 Start Time 15:42 Stop Time 16:12 Vibroacoustic Stimulation Used No Patient States Movement Yes EFM: EFM: 130s, moderate variability, positive accelerations, no decelerations [place]: None NST reactive/Cat 1 - Results and Plan Findings/Impression: Nitrazine and ROM Plus negative Plan: 27yo at 32.4 not in labor, membranes intact - NST reactive - labor precautions - Follow up in office as scheduled
== END 2022-09-01 16:35 | disposition home or self-care (01) ==
LOC: WFO 15:17 → FBP 15:19 → WFO 16:35
PROVIDERS: ATTEND Obstetrics & Gynecology
DX: O99.891 Other specified diseases and conditions complicating pregnancy (principal); N89.8 Other specified noninflammatory disorders of vagina; Z3A.32 32 weeks gestation of pregnancy
CPT/HCPCS: 59025; 84112; 99214

== ENCOUNTER 2022-10-06 15:45 | Outpatient (CLI) | payer OTHER | END 2022-10-06 23:59 | disposition home or self-care (01) | LOC: LAB.WC 15:45 | PROVIDERS: ATTEND Obstetrics & Gynecology | DX: Z36.85 Encounter for antenatal screening for Streptococcus B (principal) | CPT/HCPCS: 87797 ==

== ENCOUNTER 2022-10-14 08:00 | Outpatient (CLI) | payer OTHER ==
[2022-10-14 16:25] LABS: RUPTURE OF MEMBRANES PLUS NEGATIVE (NEGATIVE)
== END 2022-10-14 23:59 | disposition home or self-care (01) ==
LOC: LAB.R 08:00
PROVIDERS: ATTEND Nurse Practitioner
DX: Z36.89 Encounter for other specified antenatal screening (principal)
CPT/HCPCS: 84112

== ENCOUNTER 2022-10-14 15:52 | Outpatient (CLI) | payer OTHER ==
--- NOTE | 2022-10-14 18:17 | PROVIDER PROGRESS NOTE ---
- HPI Current : Vital Signs Temperature 98.6 F 10/14/22 16:02 Heart Rate 75 10/14/22 16:02 Respiratory Rate 18 10/14/22 16:02 Blood Pressure 124/67 10/14/22 16:02 Temperature 98.6 F 10/14/22 16:02 Heart Rate 75 10/14/22 16:02 Respiratory Rate 18 10/14/22 16:02 Blood Pressure 124/67 10/14/22 16:02 O2 Saturation If not protocol: Oxygen Flow, liters/minute - Procedures OB Procedure Performed: NST Diagnosis/Indication for NST: Other (Doppler 110s in office, for extended monitoring) NST Procedure: NST Procedure Start Time 15:42 Stop Time 16:12 EFM: 120s, moderate variability, positive accelerations, no decelerations [place]: irregular contractions every 8 minutes NST reactive/Cat 1 Performed and read 10/14/22 - Plan Plan: 27yo at 38.5w sent from office for rule out rupture and extended monitoring as dopplers in 110-120s. She is not sure if water broke. Occasional mild contractions. Denies vaginal bleeding. Good movement. care at , records reviewed. VSS GEN: NAD CV: Regular rate Resp: Breathing unlabored Abd: soft, gravid Ext: nt NST reactive ROMPlus negative 27yo at 38.5w, false labor and membranes intact - NST reactive - Discharge to home, labor precautions
[2022-10-14] MEDS ORDERED: CEFOTETAN DISODIUM 1 GM in SODIUM CHLORIDE 0.9% MINIBAG 100 ML IV ONE (19:00)
[2022-10-14 21:48] VITALS: BP 117/74
== END 2022-10-14 18:05 | disposition home or self-care (01) ==
LOC: WFO 15:52 → FBP 15:54 → WFO 18:05
PROVIDERS: ATTEND Obstetrics & Gynecology
DX: O47.1 False labor at or after 37 completed weeks of gestation (principal); O36.8130 Decreased fetal movements, third trimester, not applicable or unspecified; Z3A.38 38 weeks gestation of pregnancy
CPT/HCPCS: 59025; 84112

== ENCOUNTER 2022-10-24 01:29 | Inpatient (IN) | payer OTHER ==
[2022-10-24] MEDS ORDERED: OXYTOCIN/SODIUM CHLORIDE 500 ML IV PRN (01:55)
[2022-10-24] MEDS ORDERED: lidocaine 1% 20 ML MDV ID PRN (01:55)
[2022-10-24] MEDS ORDERED: OXYTOCIN 10 UNIT/ML VIAL IM PRN (01:55)
[2022-10-24] MEDS ORDERED: miSOPROStoL 200 MCG TABLET PR PRN (01:55)
[2022-10-24] MEDS ORDERED: miSOPROStoL 200 MCG TABLET BC PRN (01:55)
[2022-10-24] MEDS ORDERED: TERBUTALINE 1 MG/ML VIAL SUBQ PRN (01:55)
[2022-10-24] MEDS ORDERED: CARBOPROST TROMETHAMINE 250 MCG/ML AMP IM PRN (01:55)
[2022-10-24] MEDS ORDERED: fentaNYL 100 MCG/2 ML VIAL IVP PRN (01:55)
[2022-10-24] MEDS ORDERED: TRANEXAMIC ACID IN NACL 1,000 MG/100 ML BAG IV PRN (01:55)
[2022-10-24] MEDS ORDERED: METHYLERGONOVINE 0.2 MG/ML VIAL IM PRN (01:55)
[2022-10-24] MEDS ORDERED: hydrALAZINE INJ 20 MG/ML VIAL IVP PRN ×2 (01:55)
[2022-10-24] MEDS ORDERED: SODIUM CHLORIDE FLUSH 0.9% 10 ML SYRINGE IVP PRN (01:55)
[2022-10-24] MEDS ORDERED: LABETALOL 20 MG/4 ML SYRINGE IVP PRN ×3 (01:55)
[2022-10-24] MEDS ORDERED: NIFEdipine 10 MG CAPSULE PO PRN (01:55)
[2022-10-24] MEDS ORDERED: SODIUM CHLORIDE FLUSH 0.9% 10 ML SYRINGE IVP SCH (02:00)
--- NOTE | 2022-10-24 02:22 | HISTORY & PHYSICAL EXAMINATION ---
History and Physical - History and Physical This 27-year-old 2 para 1 EDC October-2021 came to the labor and delivery after onset of spontaneous labor contractions. She had a normal course and care and started having contraction last night around 11 PM. On admission she was 7 cm dilated and requested to have an epidural. Her group B strep was negative and her laboratory works were all negative.She has good movement. Denies loss of fluid. No MOYER/BV or RUQP. No vaginal bleeding. Denies nausea and vomiting. Denies urinary urgency or dysuria. All other symptoms reviewed and were negative except per HPI. PMH [Noncontributory] PSH [ Extraction of wisdom teeth ] OB History [ ] SH [No smoking ] Family History Ovarian cancer ] Allergies [ None] Medications [ vitamins] Physical exam: General: Alert, oriented, no acute distress Head: Normal cephalic atraumatic Eyes: PERRLA, extraocular motions intact. Respiratory: Normal rate of respiration. No accessory muscle use, normal respiratory effort. Cardiovascular: Regular rate and rhythm Abdomen: Gravid, nontender, nondistended Extremities: Normal range of motion Neuro: Oriented x3. Normal movements Psych: Appropriate mood and affect. Normal judgment and insight SVE: [ 7/100/0] FHT: [125 ] [place]: [ Every 3 minutes] Plan [ Epidural placement and normal vaginal delivery]
[2022-10-24] MEDS ORDERED: LACTATED RINGERS 1,000 ML ONE (02:26)
[2022-10-24] MEDS ORDERED: ROPIVACAINE 0.2% 200 MG/100 ML BAG EP ONE (02:42)
[2022-10-24 02:47] LABS: BASOPHILS # (AUTO) 0.1 10^3/uL (0.0-0.1); BASOPHILS % (AUTO) 0.4 %; EOSINOPHILS % (AUTO) 0.2 %; HCT - HEMATOCRIT 38.6 % (37.0-47.0); HGB - HEMOGLOBIN 12.6 g/dL (12.0-16.0); LYMPHOCYTES # (AUTO) 2.4 10^3/uL (1.5-3.5); LYMPHOCYTES % (AUTO) 19.1 %; MEAN CORPUSCULAR HEMOGLOBIN 30.3 pg (27.0-31.0); MEAN CORPUSCULAR HGB CONC 32.6 g/dL (32.0-36.0); MEAN CORPUSCULAR VOLUME 92.8 fL (81.0-99.0); MEAN PLATELET VOLUME 11.5 fL (7.9-10.8); MONOCYTES # (AUTO) 0.8 10^3/uL (0.0-1.0); MONOCYTES % (AUTO) 6.1 %; NEUTROPHILS # (AUTO) 9.4 10^3/uL (1.5-6.6); NEUTROPHILS % (AUTO) 73.3 %; PLT - PLATELET COUNT 187 10^3/uL (130-450); RED BLOOD COUNT 4.16 10^6/uL (4.20-5.40); RED CELL DISTRIBUTION WIDTH 13.1 % (12.0-15.0); WHITE BLOOD COUNT 12.8 x10^3/uL (4.8-10.8)
[2022-10-24 03:00] LABS: ALBUMIN 3.1 g/dL (3.2-5.5); BILIRUBIN,TOTAL 0.6 mg/dL (0.2-1.0); CALCIUM 8.7 mg/dL (8.5-10.3); CREATININE 0.6 mg/dL (0.4-1.0); POTASSIUM 3.3 mmol/L (3.5-5.0); TOTAL PROTEIN 6.3 g/dL (6.7-8.2)
--- NOTE | 2022-10-24 04:30 | DELIVERY NOTE ---
Delivery Note - Labor Labor: positive: Spontaneous - Delivery Method Delivery Method: positive: Spontaneous vaginal delivery - Presentation Presentation: positive: Vertex, ANGIE - left occiput anterior - Nuchal Cord Nuchal Cord: positive: None - Amniotic Fluid Description Amniotic Fluid Description: positive: Clear - Episiotomy Type Episiotomy Type: positive: None - Laceration Laceration: positive: 1st degree - Delivery Outcome Delivery Outcome: positive: Livebirth - [place] : positive: Placed in direct skin contact with mother sex: positive: Male - Cord Cord: positive: 3 vessels - Placenta Placenta: positive: Intact, Spontaneous - Estimated Blood Loss Estimated Blood Loss (in cc): 150 - Post Delivery Events Post Delivery Events: positive: No post delivery events - Delivery Comments (Free Text/Narrative) Delivery Comments (Free Text/Narrative): Delivery Summary: Patient was placed in the dorsal lithotomy position. Upon maternal pushing the head was delivered atraumatically followed by the anterior shoulder, posterior shoulder, then the remainder of the 's body. A [ Male ] infant was delivered with APGARS of [ 8 ] at 1 minute and [ 8 ] at 5 minutes. The infant was placed on its mother's chest . After the cord finished pulsating, the umbilical cord was clamped times two and cut. The placenta delivered intact with three vessel cord. Placenta [was not] sent to pathology. Thirty units of Pitocin were added to the IV fluid and allowed to run freely. Uterine massage was performed until uterus was deemed firm. [Upon inspection of the perineum, vagina and cervix were intact.] [ first degree laceration was noted which was not repaired. Upon re-inspection the patient was hemostatic.] Uterus again massaged and found to be firm. Needle and sponge counts were correct. Patient was stable and allowed to recover in L&D room. [ was stable and remained in room with mother.] weight is pending at this time.
[2022-10-24] MEDS ORDERED: LACTATED RINGERS 1,000 ML IV SCH (05:00)
[2022-10-24] MEDS: IBUPROFEN 600 MG TABLET PO SCH ×4 (12:10→21:07)
[2022-10-24] MEDS: ACETAMINOPHEN 325 MG TABLET PO PRN ×2 (13:44→21:06)
[2022-10-24] MEDS: DOCUSATE SODIUM 100 MG CAPSULE PO SCH ×2 (13:45→21:07)
[2022-10-25] MEDS: ACETAMINOPHEN 325 MG TABLET PO PRN ×2 (00:59→05:24)
[2022-10-25] MEDS: IBUPROFEN 600 MG TABLET PO SCH ×2 (03:45→10:24)
--- NOTE | 2022-10-25 08:38 | PROVIDER PROGRESS NOTE ---
Subjective - Prog Note Date Prog Note Date: 10/25/22 Prog Note Time: 08:34 - Subjective Pt reports feeling: Improved (Soing well, no problems) Objective - Vital Signs/Intake & Output Vital Signs: Vital Signs x48h Temp Pulse Resp BP Pulse Ox 10/25/22 05:16 97.5 F L 58 L 16 97/57 L 10/25/22 01:02 97.7 F 58 L 16 103/62 100 Intake & Output: Intake & Output 10/22/22 10/23/22 10/24/22 10/25/22 23:59 23:59 23:59 23:59 Intake Total 1246 Output Total 700 Balance 546 - Lab Results Fish Bones: 10/24/22 02:34 10/24/22 02:34 Assessment/Plan - Problem List (1) Vaginal delivery Impression: P: home today with an instruction
--- NOTE | 2022-10-25 08:40 | DISCHARGE SUMMARY ---
Discharge Summary Admit Date: 10/24/22 Discharge Date: 10/25/22 Discharging Provider: Primary Care Provider: Code Status: Attempt Resuscitation Condition at Discharge: Stable Discharge Disposition: 01 Home, Self Care - DIAGNOSES Admission Diagnoses: Term in active labor Discharge Diagnoses with Status of Each Condition: Normal day 1 condition stable - HPI History of Present Illness: This 27-year-old 2 para 1 presented after onset of spontaneous labor contractions. She had a normal course and care. When she arrived and she was a found to be 7 cm dilated her membranes was intact and she requested to have an epidural but she progressed fast therefore she did not have time to have an epidural. - HOSPITAL COURSE Hospital Course: She progressed fast to complete dilation and her membrane was ruptured artificially and yielded clear fluid. She had a normal vaginal delivery over the intact perineum and no trauma was noted. Baby was active and stayed with mom in stable condition. recovery was a stable and she wanted to go home. - ALLERGIES Allergies/Adverse Reactions: Allergies Allergy/AdvReac Type Severity Reaction Status Date / Time No Known Drug Allergies Allergy Verified 02/03/21 00:53 - PHYSICAL EXAM AT DISCHARGE General Appearance: positive: No acute distress Eyes Bilateral: positive: Normal inspection ENT: positive: ENT inspection nml Neck: positive: Nml inspection Respiratory: positive: Chest non-tender Cardiovascular: positive: Regular rate & rhythm Extremities: positive: Non-tender - LABS Result Diagrams: 10/24/22 02:34 10/24/22 02:34 - FOLLOW UP Follow Up: Follow-up at the clinic to see Dr. Brothers 1 week and 6 weeks - TIME SPENT Time Spent in Discharge (Minutes): 10
[2022-10-25] MEDS: DOCUSATE SODIUM 100 MG CAPSULE PO SCH (08:48)
--- NOTE | 2022-10-25 08:48 | Discharge Plan ---
Discharge Plan Problem Reviewed?: Yes Disposition: Home, Self Care Condition: Stable Activity Restrictions: Additional Comments (pelvic rest till ) Shower Restrictions: No Driving Restrictions: Yes (until check) Weight Bearing: Partial Weight (not heavier than her baby) Assessment: stable Additional Instructions or Follow Up instructions: will be provided No Smoking: If you smoke, Please STOP! Call for help. Follow-up with: Darren Brothers MD [Provider Admit Priv/Credential] -
[2022-10-25 08:53] VITALS: BP 102/65
--- NOTE | 2022-10-25 10:52 | Labor Flowsheet ---
Labor Flowsheet Datetime Report Generated by CPN: 10/25/2022 10:52 Datetime: 10/25/2022 08:44 VITAL SIGNS NBP Sys/Marlin/Mean (mmHg): 102 : 65 : 73 Pulse: 67 SpO2 (%): 99 Datetime: 10/24/2022 03:00 Comments: Holding FHR monitor in place at bedside while mom pushing in hands and knees, FHR remains in 120s to 130s Datetime: 10/24/2022 02:57 Stage 2 Comments: hands and knees Datetime: 10/24/2022 02:50 STAGE 2 Pushing: Urge to Push Pushing Position: Pushing with Contractions; Pushing Right Side Pushing Progress: Descent with Pushing Datetime: 10/24/2022 02:45 UTERINE ACTIVITY Monitor Mode: External Monitor Interventions for UA: [place] Walk Adjusted Frequency (min): 2-3 Quality: Strong Pattern: Normal: <= 5 Contractions in 10 Minutes Resting Tone (Palpate): Relaxed Contraction Comments: palpated at bedside, unable to assess monitor reading ASSESSMENT A Monitor Mode: Telemetry FHR Baseline Rate : 125 Variability: Moderate 6-25 bpm Accelerations: 15X15 Decelerations: None Category: Category I VAGINAL EXAM Dilatation (cm): 10.0 Effacement (%): 100 Station: 0 Exam by: Dr. Parikh Membrane Status: Ruptured Membranes Rupture Method: Artificial Amniotic Fluid Color: Clear Amniotic Fluid Amount: Moderate Amniotic Fluid Odor: Normal Vaginal Exam Comments: Provider ruptured membranes Datetime: 10/24/2022 02:43 PATIENT CARE Provider Reviewed Strip: Yes COMMUNICATION Communication: Provider at Bedside Datetime: 10/24/2022 02:40 LaborFlag: Labor
--- NOTE | 2022-11-10 10:44 | Labor Flowsheet ---
Labor Flowsheet Datetime Report Generated by CPN: 11/10/2022 10:44 Datetime: 10/25/2022 08:44 VITAL SIGNS NBP Sys/Marlin/Mean (mmHg): 102 : 65 : 73 Pulse: 67 SpO2 (%): 99 Datetime: 10/24/2022 03:00 Comments: Holding FHR monitor in place at bedside while mom pushing in hands and knees, FHR remains in 120s to 130s Datetime: 10/24/2022 02:57 Stage 2 Comments: hands and knees Datetime: 10/24/2022 02:50 STAGE 2 Pushing: Urge to Push Pushing Position: Pushing with Contractions; Pushing Right Side Pushing Progress: Descent with Pushing Datetime: 10/24/2022 02:45 UTERINE ACTIVITY Monitor Mode: External Monitor Interventions for UA: [place] Adjusted Frequency (min): 2-3 Quality: Strong Pattern: Normal: <= 5 Contractions in 10 Minutes Resting Tone (Palpate): Relaxed Contraction Comments: palpated at bedside, unable to assess monitor reading ASSESSMENT A Monitor Mode: Telemetry FHR Baseline Rate : 125 Variability: Moderate 6-25 bpm Accelerations: 15X15 Decelerations: None Category: Category I VAGINAL EXAM Dilatation (cm): 10.0 Effacement (%): 100 Station: 0 Exam by: Dr. Parikh Membrane Status: Ruptured Membranes Rupture Method: Artificial Amniotic Fluid Color: Clear Amniotic Fluid Amount: Moderate Amniotic Fluid Odor: Normal Vaginal Exam Comments: Provider ruptured membranes Datetime: 10/24/2022 02:43 PATIENT CARE Provider Reviewed Strip: Yes COMMUNICATION Communication: Provider at Bedside Datetime: 10/24/2022 02:40 LaborFlag: Labor
== END 2022-10-25 10:30 | disposition home or self-care (01) | DRG 807 ==
LOC: WFO 01:29 → FBP 01:33 → WFO 02:14 → FBP 02:15
PROVIDERS: ADMIT Obstetrics & Gynecology; ATTEND Obstetrics & Gynecology
PROC: 10907ZC Drainage of Amniotic Fluid, Therapeutic from Products of Conception, Via Natural or Artificial Opening (ICD-10-PCS; principal; 2022-10-24)
PROC: 10E0XZZ Delivery of Products of Conception, External Approach (ICD-10-PCS; 2022-10-24)
DX: O70.0 First degree perineal laceration during delivery (principal); Z37.0 Single live birth; Z3A.40 40 weeks gestation of pregnancy
CPT/HCPCS: 36415; 80053; 85025; 86850; 86900; 86901; A9270; J7120; 99215